=== PATIENT | male | born 1970 | race Caucasian/White ===

== ENCOUNTER → 2019-02-03 | Outpatient (CLI) | payer OTHER ==
--- NOTE | 2019-02-03 18:41 | RADIOLOGY REPORT (SQ) ---
EXAM DESCRIPTION: MRI RT LOWER JOINT WITHOUT COMPLETED DATE/TIME: 02/03/2019 5:41 pm REASON FOR STUDY: (M23.91)UNSPECIFIED INTERNAL DERANGEMENT OF RIGHT KNEE M23.91 UNSPECIFIED INTERNA L DERANGEMENT OF RIGHT KNEE COMPARISON: None. TECHNIQUE: Rightknee images acquired and stored on PACS. Multiplanar images include fat sensitive s equences as T1, water sensitive sequences as FST2 or STIR, cartilage sensitive sequences as FSPD, and gradient echo sequences. LIMITATIONS: None. FINDINGS: JOINT AND BURSAE: Moderate effusion with multiple small loose bodies. BONE CORTEX AND MARROW: ACL reconstruction changes. No worrisome bone lesions. No occult fracture. ACL: ACL graft appears incompetent with minimal intact fibers. PCL: Intact. MCL: Intact. Minimal periligamentous edema. LCL: Intact. No periligamentous edema or fluid. MEDIAL MENISCUS: Bucket-handle tear of the medial meniscus mid body and posterior horn with 1.7 cm fl ipped fragment in the posteromedial intercondylar notch. LATERAL MENISCUS: No tears. No abnormal signal. MEDIAL COMPARTMENT: Mild chondromalacia. No bone bruises or reactive marrow edema. Small marginal os teophytes. LATERAL COMPARTMENT: 5 x 6 mm area of delaminated cartilage in the posterior weight-bearing portion o f the lateral femoral condyle. No bone bruises or reactive marrow edema. Small marginal osteophytes. PATELLA: Moderate -severe chondromalacia. No subchondral cysts. Medial and lateral retinacula intact. EXTENSOR MECHANISM: Intact. Quadriceps and patella tendons normal. SOFT TISSUES: 1 cm haro cyst. Normal flow void in popliteal artery and vein. OTHER: No other significant finding. IMPRESSION: Bucket-handle tear of the medial meniscus mid body and posterior horn with 1.7 cm flippe d fragment in the posteromedial intercondylar notch.ACL graft appears incompetent with minimal intact fibers.Moderate effusion with multiple small loose bodies. TECHNICAL DOCUMENTATION: JOB ID: [id number] [id number] 2010 [employer]- All Rights Reserved Reading location - IP/workstation name: [email or web address]
== END ==
LOC: RAD 16:33
PROVIDERS: ATTEND Orthopaedic Surgery
DX: M23.221 Derangement of posterior horn of medial meniscus due to old tear or injury, right knee (principal); M23.41 Loose body in knee, right knee; M25.461 Effusion, right knee

== ENCOUNTER 2019-03-01 07:49 | Day surgery (SDC) | payer OTHER ==
[~2019-03-01 07:49] MED LIST: ACETAMINOPHEN 325 MG TABLET PO PRN; CEFAZOLIN SODIUM 2 GM in DEXTROSE 5%-WATER 100 ML IV PRN; LACTATED RINGERS 1000 ML IV PRN; LIDOCAINE 0.5% INJ-PF (5 MG/ML) 50 ML SDV SUBCUT PRN; OXYCODONE HCL SR 10 MG TABLET PO PRN
[2019-03-01] MEDS ORDERED: OXYCODONE HCL SR 10 MG TABLET PO ONE ×2 (08:05→12:19)
[2019-03-01] MEDS ORDERED: ACETAMINOPHEN 325 MG TABLET ONE (08:05)
[2019-03-01] MEDS ORDERED: MIDAZOLAM 2 MG/2 ML INJ ONE ×2 (08:33→09:37)
[2019-03-01] MEDS ORDERED: LIDOCAINE 1% INJ-PF (10 MG/ML) 30 ML SDV ONE (08:35)
[2019-03-01] MEDS ORDERED: TRIAMCINOLONE ACETONIDE INJ 40 MG/1 ML VIAL ONE (08:35)
[2019-03-01] MEDS ORDERED: BUPIVACAINE HCL 0.5 % INJ/PF 30 ML SDV ONE (08:35)
[2019-03-01] MEDS ORDERED: KETOROLAC TROMETHAMINE 60 MG/2 ML SDV ONE (08:36)
[2019-03-01] MEDS ORDERED: EPINEPHRINE INJ/PF 1 MG/1 ML AMPULE ONE (08:37)
[2019-03-01] MEDS ORDERED: FENTANYL CITRATE INJ/PF 100 MCG/2 ML AMPUL ONE (09:37)
[2019-03-01] MEDS ORDERED: HYDROMORPHONE HCL INJ/PF 2 MG/ML AMPULE ONE (09:37)
[2019-03-01] MEDS ORDERED: PROPOFOL INJ 200 MG/20 ML VIAL IV ONE (09:37)
[2019-03-01] MEDS ORDERED: DIPHENHYDRAMINE HCL 50 MG/ML VIAL IV PRN (10:20)
[2019-03-01] MEDS ORDERED: MEPERIDINE HCL/PF INJ 25 MG/1 ML DISP.SYRIN IV PRN (10:20)
[2019-03-01] MEDS ORDERED: FENTANYL CITRATE INJ/PF 100 MCG/2 ML AMPUL IV PRN ×3 (10:20)
[2019-03-01] MEDS ORDERED: BUPIVACAINE HCL 0.5 % INJ/PF 30 ML SDV INJ ONE (10:35)
[2019-03-01] MEDS ORDERED: LIDOCAINE 1% INJ (10 MG/ML) 10 ML MDV INJ ONE (10:35)
[2019-03-01] MEDS ORDERED: TRIAMCINOLONE ACETONIDE INJ 40 MG/1 ML VIAL INJ ONE (10:36)
[2019-03-01] MEDS ORDERED: KETOROLAC TROMETHAMINE INJ/PF 30 MG/1 ML SDV INJ ONE (10:36)
[2019-03-01] MEDS ORDERED: ONDANSETRON HCL INJ/PF 4 MG/2 ML SDV ONE (11:17)
[2019-03-01] MEDS ORDERED: DEXAMETHASONE SOD PHOSPHATE INJ 4 MG/1 ML VIAL ONE (11:17)
[2019-03-01] MEDS ORDERED: LIDOCAINE 2% INJ-PF (20 MG/ML) 2 ML AMPUL ONE (11:17)
--- NOTE | 2019-03-01 11:51 | Operative Report ---
Operative Report DATE OF SURGERY: 03/01/19 PREOPERATIVE DIAGNOSIS: Right medial meniscus tear POSTOPERATIVE DIAGNOSIS: Right medial meniscus tear OPERATION: Right knee arthroscopy, partial medial meniscectomy, partial lateral meniscectomy, chondroplasty. SURGEON: JERRICA LONGO JR ANESTHESIA: GA COMPLICATIONS: None ESTIMATED BLOOD LOSS: 5 cc PROCEDURE: DESCRIPTION OF THE PROCEDURE: The patient was placed supine on the operating room table. After the patient was placed under general anesthesia, the right lower extremity was appropriate timeout was performed. Prepped and draped in the usual sterile fashion for arthroscopic surgery. The right lower extremity was then exsanguinated with the use of an Esmarch bandage and the tourniquet was inflated to 250 mmHg. The operation commenced with creation of the lateral portal utilizing his prior incision. The arthroscope was directed into the suprapatellar pouch with the knee held in extension. A systematic examination of the right knee was begun arthroscopically. The patellofemoral articulation was visualized and grade 4 changes were apparent both in the trochlea as well as the patella of the patellofemoral compartment. The medial gutter was entered. No loose bodies were identified but osteophytes were visible. The medial compartment was then entered and the medial portal was established under direct visualization with a spinal needle. The arthroscopic probe was used to inspect the contents of the medial compartment. Notably, the lateral aspect of the medial femoral condyle revealed grade III degenerative changes. This was debrided back to a stable base with a shaver. There was a degenerative horizontal cleavage tear with a flipped bucket-handle fragment on the lateral aspect into the medial meniscal root. At this point, a biter was utilized to remove the unstable portion of the medial meniscus, this was resected to a stable base. The flipped piece in the i ntercondylar notch was difficult to access and so we waited until later to fully address this. The notch was then visualized. The anterior cruciate ligament was inspected and though there were a few fibers that were incompetent of majority of the graft appeared to be in good shape. The arthroscope was directed into the lateral compartment. There was moderate meniscal fraying without an overt tear of the lateral meniscus. A biter was utilized to clean up the edge of this meniscus followed by 4.5 mm suction shaver. There was a 2 cm x 2 cm osteochondral defect, along the weightbearing surface of the lateral femoral condyle. There is a cartilaginous flap within this defect that was debrided back to stable base with the 4.5 mm suction shaver. Portals were exchanged and the medial part of the medial meniscectomy was completed. We readdressed the intercondylar notch and the attempt was made with a grabber as well as probes to pull the flipped meniscus fragment anteriorly where we could address it with a biter. After multiple attempts with this and clearing the area with a 4.5 mm suction shaver, we successfully debrided this large fragment back to a stable base. Unfortunately this consisted of much of the posterior root of the medial meniscus with only a rim remaining. The patellofemoral compartment was revisited. A mixture of Marcaine, lidocaine and toradol was injected into the right knee. The instruments were then removed. The portals were closed with 4-0 nylon and Xeroform and a light compressive dressing was applied. The tourniquet was deflated. The patient was recovered from his anesthetic and was returned to the recovery room in stable condition. There were no complications.
[2019-03-01] MEDS ORDERED: OXYCODONE HCL IR 5 MG TABLET PO PRN ×3 (12:00→12:39)
[2019-03-01] MEDS ORDERED: FISH OIL PO SCH (12:15)
[2019-03-01] MEDS ORDERED: EPA PO SCH (12:15)
[2019-03-01] MEDS ORDERED: OMEGA PO SCH (12:15)
[2019-03-01] MEDS ORDERED: DHA PO SCH (12:15)
[2019-03-01] MEDS ORDERED: MORPHINE SULFATE 10 MG/ML INJ IV PRN (12:40)
[2019-03-01] MEDS ORDERED: TRAMADOL HCL 50 MG TABLET PO PRN (12:41)
[2019-03-01] MEDS ORDERED: DIPHENHYDRAMINE HCL 25 MG CAPSULE PO PRN (12:43)
[2019-03-01] MEDS ORDERED: ONDANSETRON HCL 8 MG TABLET PO PRN (12:44)
[2019-03-01 13:30] VITALS: BP 121/72
[2019-03-01] MEDS ORDERED: ACETAMINOPHEN 325 MG TABLET PO SCH (14:00)
[2019-03-02] MEDS ORDERED: ASCORBIC ACID 500 MG TABLET PO SCH (10:00)
== END 2019-03-01 13:20 | disposition home or self-care (01) ==
LOC: OROUT 07:49
PROVIDERS: ATTEND Orthopaedic Surgery
DX: S83.211A Bucket-handle tear of medial meniscus, current injury, right knee, initial encounter (principal); S83.281A Other tear of lateral meniscus, current injury, right knee, initial encounter; X58.XXXA Exposure to other specified factors, initial encounter; M22.41 Chondromalacia patellae, right knee; M25.572 Pain in left ankle and joints of left foot; Z79.899 Other long term (current) drug therapy
CPT/HCPCS: 01400; 29880; J2250; J3490 ×3; J0690; J1100; J0171; J1885 ×2; J3010; J1170; J2405; J3301; J7060; J2704; 1400